=== PATIENT | female | born 1955 | race Caucasian/White ===

== ENCOUNTER 2018-05-02 01:34 | Observation (INO) | payer OTHER ==
[~2018-05-02] VITALS: Ht 170.2 cm; Wt 84.8 kg
[2018-05-02 01:58] LABS: ABSOLUTE BASOPHIL COUNT 0.2 /CUMM (0.0-0.2); ABSOLUTE EOSINOPHIL COUNT 0.2 /CUMM (0.0-0.7); ABSOLUTE GRANULOCYTE CT 7.9 /CUMM (1.4-6.5); ABSOLUTE LYMPH COUNT 4.5 /CUMM (1.2-3.4); ABSOLUTE MONOCYTE COUNT 0.8 /CUMM (0.10-0.60); BASOPHIL % 1.3 % (0.0-2.0); EOSINOPHIL % 1.7 % (0-5); GRANULOCYTE % 58.1 % (42.2-75.2); HEMATOCRIT 40.7 % (37-47); MEAN CORPUSCULAR HGB 28.1 PG (27.0-31.0); MEAN CORPUSCULAR HGB CONC 34.5 G/DL (33.0-37.0); MEAN CORPUSCULAR VOLUME 81.7 FL (81.0-99.0); MEAN PLATELET VOLUME 6.7 FL (7.4-10.4); PLATELET COUNT 514 /CUMM (130-400); RBC DISTRIBUTION WIDTH 12.6 % (11.5-14.5); RED BLOOD CELL CT 4.98 /CUMM (4.20-5.40); WHITE BLOOD CELL COUNT 13.6 /CUMM (4.8-10.8)
--- NOTE | 2018-05-02 02:12 | ED GI/GU/ABDOMINAL COMPLAINT ---
History of Present Illness General Chief Complaint: Abdominal Pain/Flank Pain Stated Complaint: PT C/C UPPER ABD PAIN DENIES CP Source: patient, family, old records Exam Limitations: no limitations Vital Signs & Intake/Output Vital Signs & Intake/Output Vital Signs Date Time Temp Pulse Resp B/P B/P Pulse O2 O2 Flow FiO2 Mean Ox Delivery Rate 05/02 035 97.6 85 18 153/73 99 Room Air 05/02 0146 99 Room Air 05/02 0145 97.7 103 18 165/80 100 Room Air Allergies Coded Allergies: No Known Allergies (05/02/18) Triage Note: TRIAGE: PATIENT TO ER FROM HOME REPORTING UPPER MIDDLE ABD PAIN SHOOTING DOWN MIDDLE OF ABDOMEN SINCE 4PM, 09/04. DENIES N/V. AFEBRILE. DENIES DIARRHEA. Triage Nurses Notes Reviewed? yes LMP (ages 10-50): post menopausal ? n Is pt currently ? No Onset: Evening Duration: hour(s):, constant, continues in ED, getting worse Timing: recent history Quality/Severity: aching, severe Location: right upper quadrant Radiation: periumbilical Activities at Onset: eating Prior Abdominal Problems: none Past Sexual History: Unobtainable at this time Modifying Factors: Worsens With: palpation. Associated Symptoms: abdominal pain, loss of appetite HPI: Several hours prior to admission shortly after eating a roast speech sandwich patient developed right upper quadrant discomfort that was constant and progressive radiating to her periumbilical area. She is currently on Keflex status post chin lift. She denies fever chills nausea vomiting diarrhea chest pain cough shortness breath headache dysuria rash bleeding. Past History Travel History Traveled to [place] past 21 day No Medical History Any Pertinent Medical History? none Neurological: NONE EENT: NONE Cardiovascular: NONE Respiratory: NONE Gastrointestinal: NONE Hepatic: NONE Renal: NONE Musculoskeletal: NONE Psychiatric: NONE Endocrine: NONE Blood Disorders: NONE Cancer(s): NONE PROCESS COORDINATOR/Reproductive: NONE Surgical History Surgical History: non-contributory Psychosocial History What is your primary language Romansh Tobacco Use: Never used Family History Hx Contributory? No Review of Systems Review of Systems Constitutional: Reports: no symptoms. EENTM: Reports: no symptoms. Respiratory: Reports: no symptoms. Cardiovascular: Reports: no symptoms. GI: Reports: see HPI, abdominal pain. Genitourinary: Reports: no symptoms. Musculoskeletal: Reports: no symptoms. Skin: Reports: no symptoms. Neurological/Psychological: Reports: no symptoms. Hematologic/Endocrine: Reports: no symptoms. Immunologic/Allergic: Reports: no symptoms. All Other Systems: Reviewed and Negative Physical Exam Physical Exam General Appearance: well developed/nourished, alert, awake, anxious, moderate distress, obese Head: atraumatic, normal appearance Eyes: Bilateral: normal appearance, PERRL, EOMI, normal inspection. Ears, Nose, Throat, Mouth: hearing grossly normal, moist mucous membrane Neck: normal inspection, supple, full range of motion, normal alignment Respiratory: normal breath sounds, chest non-tender, no respiratory distress, quiet respiration, lungs clear Cardiovascular: regular rate/rhythm, normal peripheral pulses, norml femoral pulses equa Peripheral Pulses: 4+ carotid (R), 4+ carotid (L) Gastrointestinal: normal bowel sounds, soft, guarding, tenderness Back: normal inspection, normal range of motion, no vertebral tenderness Extremities: normal range of motion, no ligament instability Neurologic/Psych: no motor/sensory deficits, awake, alert, oriented x 3, normal gait, normal mood/affect, 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 No Sepsis Present: No Sepsis Focused Exam Completed? No Progress Differential Diagnosis: biliary colic, cholecystitis, gastritis Plan of Care: Orders Procedure Date/time Status Admit to inpatient 05/02 0536 Active URINALYSIS 05/02 0201 Complete EKG 05/02 0149 Active TROPONIN LEVEL 05/02 0148 Complete LIPASE 05/02 0148 Complete COMPREHENSIVE METABOLIC PANEL 05/02 0148 Complete CBC WITHOUT DIFFERENTIAL 05/02 0148 Complete AMYLASE 05/02 0148 Complete Laboratory Tests 05/02/18 0418: Urine Color STRAW, Urine Clarity CLEAR, Urine pH 6.0, Ur Specific [place] <= 1.005, Urine Protein NEG, Urine Ketones NEG, Urine Nitrite NEG, Urine Bilirubin NEG, Urine Urobilinogen 0.2, Ur Leukocyte Esterase NEG, Ur Microscopic SEDIMENT EXAMINED, Urine RBC 1-3, Ur Epithelial Cells RARE, Urine Bacteria RARE H, Urine Hemoglobin TRACE-INTACT, Urine Glucose NEG 05/02/18 0152: Anion Gap 13, Estimated GFR > 60, BUN/Creatinine Ratio 15.7, Glucose 112 H, Calcium 10.3 H, Total Bilirubin 0.4, AST 27, ALT 35, Alkaline Phosphatase 110, Troponin I < 0.01, Total Protein 7.3, Albumin 4.2, Globulin 3.1, Albumin/ Globulin Ratio 1.4, Amylase 56, Lipase 90, CBC w Diff MAN DIFF ORDERED, RBC 4.98 , MCV 81.7, MCH 28.1, MCHC 34.5, RDW 12.6, MPV 6.7 L, Gran % 58.1, Lymphocytes % 33.3, Monocytes % 5.6, Eosinophils % 1.7, Basophils % 1.3, Absolute Granulocytes 7.9 H, Segmented Neutrophils 54, Absolute Lymphocytes 4.5 H, Lymphocytes 42, Monocytes 3, Absolute Monocytes 0.8 H, Eosinophils 1, Absolute Eosinophils 0.2, Absolute Basophils 0.2, Platelet Estimate INCREASED, Polychromasia 1+, Ovalocytes FEW, Fld Total RBCs Counted 100 Diagnostic Imaging: Viewed by Me: CT Scan. Discussed w/RAD: CT Scan. Radiology Impression: 1. Multiple gallstones within a distended gallbladder. No definite CT findings of associated inflammation, though ultrasound would be a more sensitive examination for detecting mild changes of acute cholecystitis. 2. Left lower pole renal calculus without hydronephrosis. 3. Left ovarian cyst measuring 2.3 cm. Initial ED EKG: normal axis, normal intervals, normal p-waves, normal QRS complex, normal sinus rhythm, no ST T wave changes Prior EKG: unchanged Rhythm Strip: normal sinus rhythm Departure Departure Time of Disposition: 536 Disposition: STILL A PATIENT Condition: Stable Clinical Impression Primary Impression: Cholecystitis with cholelithiasis Secondary Impressions: Leukocytosis, unspecified Referrals: Kev ROOT,Bismark Reza (PCP/Family) Departure Forms: Customer Survey General Discharge Information Admission Note Spoke With: Segun ROOT,Michael Mckeon Documentation of Exam: Documentation of any treatments & extenuating circumstances including Concerns Regarding Discharge (functional status, medication knowledge or non-compliance, living conditions, etc.) that warrant an admission rather than observation: IV analgesia IV antibiotics nothing by mouth IV fluids surgical management medication adjustment continuing care discharge planning
--- NOTE | 2018-05-02 03:20 | CT SCAN REPORT ---
EXAMINATION: CT ABDOMEN AND PELVIS WITH CONTRAST CLINICAL INFORMATION: Right upper quadrant tenderness, Chiang's sign COMPARISON: None TECHNIQUE: Multidetector volumetric imaging was performed of the abdomen and pelvis following IV administration of 95 mL of Optiray 320 intravenous contrast. Sagittal and coronal reformatted images were obtained on the technologist's workstation. DLP: 466.24 mGy-cm FINDINGS: LUNG BASES: There is mild dependent atelectasis at the lung bases. LIVER, GALLBLADDER, AND BILIARY TREE: The liver is normal in size, shape, and attenuation. No focal hepatic lesion or biliary ductal dilatation is present. Multiple gallstones are visualized within a distended gallbladder. No appreciable gallbladder wall thickening or pericholecystic inflammation. PANCREAS: Unremarkable. SPLEEN: Unremarkable. ADRENAL GLANDS: Unremarkable. KIDNEYS AND URETERS: The kidneys are normal in size, shape, and attenuation. There is a subcentimeter hypoattenuating lesion in the upper left kidney, too small to characterize. There is a 0.3 cm calculus in the left lower pole. No hydronephrosis, hydroureter, or obstructing calculi seen. No perinephric stranding. BLADDER: Unremarkable. GASTROINTESTINAL TRACT: There is minimal colonic diverticulosis of the descending colon. No evidence of bowel obstruction. Assessment for wall thickening in some segments of the colon is limited due to luminal collapse, though no significant pericolonic stranding is seen to strongly suggest a colitis. The appendix is suspected to be collapsed. No free fluid or free air is seen. ABDOMINAL WALL: No significant hernia is appreciated. LYMPH NODES: Normal. VASCULAR: There is mild scattered atherosclerotic calcification.. PELVIC VISCERA: There is a 2.3 cm left ovarian cyst. OSSEOUS STRUCTURES: Degenerative changes are noted in the spine. IMPRESSION: 1. Multiple gallstones within a distended gallbladder. No definite CT findings of associated inflammation, though ultrasound would be a more sensitive examination for detecting mild changes of acute cholecystitis. 2. Left lower pole renal calculus without hydronephrosis. 3. Left ovarian cyst measuring 2.3 cm.
--- NOTE | 2018-05-02 03:49 | History & Physical Pre-Op ---
General Information and HPI History of Present Illness: 62yoF presents to ED with acute onset RUQ sharp pain that began around 3pm yesterday, about an hour after lunch. Ate nothing unusual for lunch, has never had this pain in past, no prior dx of gallstones or biliary pathology. Pain worsened through evening, though better now after pain meds in ED. Last BL yestday am, "normal" per pt. No changes in urinary habits, no fevers/chills, no n/v, no cp/sob. Last meal yesterday lunch. No hx abdominal surgery, though is 3wk sp cosmetic partial facelift and has been on keflex for the entire postop period. Also sp lumbar fusion 20yrs ago, otherwise no PMHx. Allergies/Medications Allergies: Coded Allergies: No Known Allergies (05/02/18) Home Med list Cephalexin 500 MG CAPSULE 1 CAP PO BID POST-OP (Reported) Past History Medical History Cardiovascular: NONE Respiratory: NONE Gastrointestinal: NONE Musculoskeletal: sp lumbar fusion 20yr ago Other Medical Hx: s/p cosmetic partial face lift 3 weeks ago Surgical History Pertinent Surgical History: partial face lift, lumbar fusion Past Family/Social History Psychosocial History Where Do You Live? Home Who Do You Live With? spouse Services at Home None Smoking Status: Never Smoked ETOH Use: occasional use Illicit Drug Use: denies illicit drug use Exam & Diagnostic Data Last 24 Hrs of Vital Signs/I&O Vital Signs Date Time Temp Pulse Resp B/P B/P Pulse O2 O2 Flow FiO2 Mean Ox Delivery Rate 05/02 0351 97.6 85 18 153/73 99 Room Air 05/02 0146 99 Room Air 05/02 0145 97.7 103 18 165/80 100 Room Air Intake & Output 05/02 0800 05/02 0000 05/01 1600 Intake Total Output Total Balance Patient 180 lb Weight Weight Reported by Patient Measurement Method Physical Exam: gen- nad card-s1s2 rrr pulm- ctab abd- ttp ruq, soft, nd, no r/g, +bs ext- calves soft nt bl Last 24 Hrs of Labs/Socrates: Laboratory Tests 05/02/18 0418: Urine Color Pending, Urine Clarity Pending, Urine pH Pending, Ur Specific [place] Pending, Urine Protein Pending, Urine Ketones Pending, Urine Nitrite Pending, Urine Bilirubin Pending, Urine Urobilinogen Pending, Ur Leukocyte Esterase Pending, Ur Microscopic SEDIMENT EXAMINED, Urine RBC Pending, Urine Hemoglobin Pending, Urine Glucose Pending 05/02/18 0152: Anion Gap 13, Estimated GFR > 60, BUN/Creatinine Ratio 15.7, Glucose 112 H, Calcium 10.3 H, Total Bilirubin 0.4, AST 27, ALT 35, Alkaline Phosphatase 110, Troponin I < 0.01, Total Protein 7.3, Albumin 4.2, Globulin 3.1, Albumin/ Globulin Ratio 1.4, Amylase 56, Lipase 90, CBC w Diff MAN DIFF ORDERED, RBC 4.98 , MCV 81.7, MCH 28.1, MCHC 34.5, RDW 12.6, MPV 6.7 L, Gran % 58.1, Lymphocytes % 33.3, Monocytes % 5.6, Eosinophils % 1.7, Basophils % 1.3, Absolute Granulocytes 7.9 H, Segmented Neutrophils 54, Absolute Lymphocytes 4.5 H, Lymphocytes 42, Monocytes 3, Absolute Monocytes 0.8 H, Eosinophils 1, Absolute Eosinophils 0.2, Absolute Basophils 0.2, Platelet Estimate INCREASED, Polychromasia 1+, Ovalocytes FEW, Fld Total RBCs Counted 100 Diagnostic Data Other Results SERVICE DATE: 05/02/18 EXAM TYPE: CAT - CT ABD & PELVIS W IV CONTRAST EXAMINATION: CT ABDOMEN AND PELVIS WITH CONTRAST CLINICAL INFORMATION: Right upper quadrant tenderness, Chiang's sign COMPARISON: None TECHNIQUE: Multidetector volumetric imaging was performed of the abdomen and pelvis following IV administration of 95 mL of Optiray 320 intravenous contrast. Sagittal and coronal reformatted images were obtained on the technologist's workstation. DLP: 466.24 mGy-cm FINDINGS: LUNG BASES: There is mild dependent atelectasis at the lung bases. LIVER, GALLBLADDER, AND BILIARY TREE: The liver is normal in size, shape, and attenuation. No focal hepatic lesion or biliary ductal dilatation is present. Multiple gallstones are visualized within a distended gallbladder. No appreciable gallbladder wall thickening or pericholecystic inflammation. PANCREAS: Unremarkable. SPLEEN: Unremarkable. ADRENAL GLANDS: Unremarkable. KIDNEYS AND URETERS: The kidneys are normal in size, shape, and attenuation. There is a subcentimeter hypoattenuating lesion in the upper left kidney, too small to characterize. There is a 0.3 cm calculus in the left lower pole. No hydronephrosis, hydroureter, or obstructing calculi seen. No perinephric stranding. BLADDER: Unremarkable. GASTROINTESTINAL TRACT: There is minimal colonic diverticulosis of the descending colon. No evidence of bowel obstruction. Assessment for wall thickening in some segments of the colon is limited due to luminal collapse, though no significant pericolonic stranding is seen to strongly suggest a colitis. The appendix is suspected to be collapsed. No free fluid or free air is seen. ABDOMINAL WALL: No significant hernia is appreciated. LYMPH NODES: Normal. VASCULAR: There is mild scattered atherosclerotic calcification.. PELVIC VISCERA: There is a 2.3 cm left ovarian cyst. OSSEOUS STRUCTURES: Degenerative changes are noted in the spine. IMPRESSION: 1. Multiple gallstones within a distended gallbladder. No definite CT findings of associated inflammation, though ultrasound would be a more sensitive examination for detecting mild changes of acute cholecystitis. 2. Left lower pole renal calculus without hydronephrosis. 3. Left ovarian cyst measuring 2.3 cm. Assessment/Plan Assessment/Plan: A- 62F with cholelithiasis/cholecystitis, with leukocytosis of 13K with normal LFTs, stable P- NPO IVF IV meds prn pain meds IV abx will require cholecystectomy later today DVT ppx OOB, ambulate I&Os Full code will dw Dr. Cast As Ranked By This Provider Problem List: 1. Cholecystitis 2. Cholelithiasis
--- NOTE | 2018-05-02 03:49 | Admission Core Measures ---
Acute Coronary Syndrome (CM) ACS Core Measures Acute Coronary Syndrome Diagnosis No Congestive Heart Failure (NEW) CHF Core Measures Congestive Heart Failure Diagnosis No Cerebrovascular Accident CVA Core Measures CVA/TIA Diagnosis No Venous Thromboembolism VTE Core Andria (View Protocol) VTE Risk Factors Acute Medical Illness No Mechanical VTE Prophylaxis d/t N/A MechProphylax Ordered No VTE Pharm Prophylaxis d/t NA PharmProphylax ordered Problem List As ranked by this Provider includes Assessment & Plan 1. Cholecystitis
[2018-05-02] MEDS ORDERED: CEPHALEXIN500 M3 PO (05:51)
[2018-05-02 08:05] VITALS: BP 140/80
--- NOTE | 2018-05-02 13:07 | Patient Discharge Instructions ---
Discharge Instructions General Discharge Information You were seen/treated for: Acute cholecystitis You had these procedures: Laparoscopic cholecystectomy on 05/02/18 Watch for these problems: Increased pain, fever > 101.3, chills, nausea, vomiting, redness, swelling or drainage from your incisions No bath, but you may shower: Yes (in 48 hours) Other wound care: Keep incisions clean and dry Ok to remove dressings in 48 hours Diet Continue normal diet: No Recommended Diet: Low Fat Activity Full Activity/No Limits: No Activity Self Limited: Yes Pounds, do NOT lift more than: 10 Other activity limits: No heavy lifting or strenous activity for 4 weeks Acute Coronary Syndrome Inclusion Criteria At DC or during hospital stay patient has or had the following: ACS DIAGNOSIS No Discharge Core Measures Meds if any: Prescribed or Continued at Discharge Meds if any: NOT Prescribed or Continued at Discharge Congestive Heart Failure Inclusion Criteria At DC or during hospital stay patient has or had the following: CHF DIAGNOSIS No Discharge Core Measures Meds if any: Prescribed or Continued at Discharge Meds if any: NOT Prescribed or Continued at Discharge Cerebrovascular accident Inclusion Criteria At DC or during hospital stay patient has or had the following: CVA/TIA Diagnosis No Discharge Core Measures Meds if any: Prescribed or Continued at Discharge Meds if any: NOT Prescribed or Continued at Discharge Venous thromboembolism Inclusion Criteria VTE Diagnosis No VTE Type NONE VTE Confirmed by (Test) NONE Discharge Core Measures - Per Current guidelines, there needs to be overlap - treatment for the first 5 days of Warfarin therapy. - If discharged on Warfarin prior to 5 days of - overlap therapy, the patient will need to be - assessed for post discharge needs including - *Post discharge parental anticoagulation - *Warfarin and/or parental anticoagulation education - *Follow up date to check INR post discharge At least 5 days overlap therapy as Inpatient No Meds if any: Prescribed or Continued at Discharge Note: Overlap Therapy is Warfarin and Anticoagulant Meds if any: NOT Prescribed or Continued at Discharge
--- NOTE | 2018-05-02 14:03 | Surg Short-stay <48hrs Dis Sum ---
Visit Information Visit Dates Admission Date: 05/02/18 Discharge Date: 05/02/18 Surgical Short Stay DC Summary Admission Diagnosis: Acute Cholecystitis, Cholelithiasis Final Diagnosis: Same Procedure(s): Laparoscopic Cholecystectomy Summary/Significant Findings: This is a 62 yo female who presented to the ED with acute onset of RUQ sharp pain that began around 3pm yesterday, about an hour after lunch. Ate nothing unusual for lunch, has never had this pain in past, no prior dx of gallstones or biliary pathology. Pain worsened through evening, though better after pain meds in ED. Last BM yestday am, "normal" per pt. No changes in urinary habits, no fevers/chills, no n/v, no cp/sob. Last meal yesterday lunch. No hx abdominal surgery, though is 3wk s/p cosmetic partial facelift and has been on keflex for the entire postop period. Also s/p lumbar fusion 20yrs ago, otherwise no PMHx. Workup was obtained and revealed Acute Cholecystitis & Cholelithiasis. She was admitted to the surgical service and made npo, placed on IVF and ABx in the form of unasyn. Arrangements were made to proceed to the operating room. On 05/02/18 she underwent Laparoscopic Cholecystectomy. Patient tolerated the procedure well. Postoperative course was uncomplicated. Diet was advanced in a stepwise fashion as tolerated. By time of discharge patient was ambulating, voiding, tolerating a low fat diet, and pain was well controlled with oral analgesia. Plan is for the patient to follow up Dr. Cast in one to two weeks. Full details of her hospital course, operative report and diagnostic studies can be found in her electronic chart. Condition at Discharge: Stable Discharge Disposition: home or self care Discharge instructions provided to patient/family: Yes Post discharge follow-up plan: Please see electronic discharge instructions. Copies to: Segun ROOT,Michael Mckeon
--- NOTE | 2018-05-02 14:52 | PN- General Surgery ---
Subjective Subjective: Patient doing well post procedure. Reports slight discomfort in the RUQ but feels markedly improved. Ready to try some pain medication. Denies any other issues or complaints. Objective Vital Signs and I&Os Vital Signs Date Time Temp Pulse Resp B/P B/P Pulse O2 O2 Flow FiO2 Mean Ox Delivery Rate 05/02 805 98.2 72 20 140/80 98 Room Air 05/02 0556 98.4 76 18 148/90 98 05/02 0351 97.6 85 18 153/73 99 Room Air 05/02 0146 99 Room Air 05/02 0145 97.7 103 18 165/80 100 Room Air Intake & Output 05/02 1600 05/02 0800 05/02 0000 05/01 1600 05/01 0800 05/01 0000 Intake Total Output Total Balance Patient 187 lb 187 lb Weight Weight Bed scale Bed scale Measurement Method Physical Exam: General: A, A, NAD Abdomen: Obese, soft, nd, appropriately ttp, incisions c/d/i with bandaids and steristrips in place, no strikethrough on the dressings, no perincisional edema, erythema, or ecchymosis Extremities: No clubbing, cyanosis or edema Current Medications: Current Medications Sig/Jose Enrique Start time Last Medication Dose Route Stop Time Status Admin Acetaminophen 1,000 MG Q8P PRN 05/02 1400 AC PO Ampicillin Sodium/ 1,500 MG Q6H 05/02 1000 DC 05/02 Sulbactam Sodium IV 1033 Sodium Chloride 100 ML Ampicillin Sodium/ 3,000 MG ONCE ONE 05/02 0345 DC 05/02 Sulbactam Sodium IV 05/02 0414 0348 Sodium Chloride 100 ML Ampicillin Sodium/ 0 .STK-MED ONE 05/02 0345 DC Sulbactam Sodium .ROUTE Dextrose/Sodium 1,000 ML CONTINOUS INFUSION 05/02 0615 AC 05/02 Chloride IV 1004 Diphenhydramine HCl 50 MG Q6P PRN 05/02 1400 AC IV Heparin Sodium 5,000 UNIT Q8 05/02 1400 AC (Porcine) SC Ketorolac 15 MG Q6 05/02 1800 AC Tromethamine IV 05/03 1801 Ketorolac 30 MG ONCE ONE 05/02 0930 DC 05/02 Tromethamine IV 05/02 0931 0931 Ketorolac 0 .STK-MED ONE 05/02 0210 DC Tromethamine .ROUTE Ketorolac 30 MG ONCE ONE 05/02 200 DC 05/02 Tromethamine IV 05/02 0201 0205 Morphine Sulfate 2 MG Q2P PRN 05/02 07 AC 05/02 IV 08 Morphine Sulfate 0 .STK-MED ONE 05/02 627 DC .ROUTE Morphine Sulfate 2 MG Q2P PRN 05/02 615 DC 05/02 IV 0623 Morphine Sulfate 4 MG ONCE ONE 05/02 034 DC 05/02 IV 05/02 034 034 Morphine Sulfate 0 .STK-MED ONE 05/02 345 DC .ROUTE Ondansetron HCl 4 MG Q6P PRN 05/02 0615 AC IV Oxycodone/ 1 TAB Q4P PRN 05/02 1400 AC Acetaminophen PO Sodium Chloride 1,000 ML BOLUS ONE 05/02 200 DC 05/02 IV 05/02 0259 0205 Results Last 48 Hours of Labs: Laboratory Tests 05/02 05/02 0418 0152 Chemistry Sodium (137 - 145 mmol/L) 142 Potassium (3.5 - 5.1 mmol/L) 4.2 Chloride (98 - 107 mmol/L) 103 Carbon Dioxide (22 - 30 mmol/L) 27 Anion Gap (5 - 16) 13 BUN (7 - 17 mg/dL) 11 Creatinine (0.5 - 1.0 mg/dL) 0.7 Estimated GFR (>60 ml/min) > 60 BUN/Creatinine Ratio (7 - 25 %) 15.7 Glucose (65 - 99 mg/dL) 112 H Calcium (8.4 - 10.2 mg/dL) 10.3 H Total Bilirubin (0.2 - 1.3 mg/dL) 0.4 AST (14 - 36 U/L) 27 ALT (9 - 52 U/L) 35 Alkaline Phosphatase (<127 U/L) 110 Troponin I (< 0.11 ng/ml) < 0.01 Total Protein (6.3 - 8.2 g/dL) 7.3 Albumin (3.5 - 5.0 g/dL) 4.2 Globulin (1.9 - 4.2 gm/dL) 3.1 Albumin/Globulin Ratio (1.1 - 2.2 %) 1.4 Amylase (30 - 110 U/L) 56 Lipase (23 - 300 U/L) 90 Hematology CBC w Diff MAN DIFF ORDERED WBC (4.8 - 10.8 /CUMM) 13.6 H RBC (4.20 - 5.40 /CUMM) 4.98 Hgb (12.0 - 16.0 G/DL) 14.0 Hct (37 - 47 %) 40.7 MCV (81.0 - 99.0 FL) 81.7 MCH (27.0 - 31.0 PG) 28.1 MCHC (33.0 - 37.0 G/DL) 34.5 RDW (11.5 - 14.5 %) 12.6 Plt Count (130 - 400 /CUMM) 514 H MPV (7.4 - 10.4 FL) 6.7 L Gran % (42.2 - 75.2 %) 58.1 Lymphocytes % (20.5 - 51.1 %) 33.3 Monocytes % (1.7 - 9.3 %) 5.6 Eosinophils % (0 - 5 %) 1.7 Basophils % (0.0 - 2.0 %) 1.3 Absolute Granulocytes (1.4 - 6.5 /CUMM) 7.9 H Segmented Neutrophils (42.2 - 75.2 %) 54 Absolute Lymphocytes (1.2 - 3.4 /CUMM) 4.5 H Lymphocytes (20.5 - 51.1 %) 42 Monocytes (1.7 - 9.3 %) 3 Absolute Monocytes (0.10 - 0.60 /CUMM) 0.8 H Eosinophils (0 - 5.0 %) 1 Absolute Eosinophils (0.0 - 0.7 /CUMM) 0.2 Absolute Basophils (0.0 - 0.2 /CUMM) 0.2 Platelet Estimate (ADEQUATE) INCREASED Polychromasia 1+ Ovalocytes FEW Other Body Source Fld Total RBCs Counted (%) 100 Urines Urine Color (YEL,AMB,STR) STRAW Urine Clarity (CLEAR) CLEAR Urine pH (5.0 - 8.0) 6.0 Ur Specific [place] (1.001 - 1.035) <= 1.005 Urine Protein (NEG,<30 MG/DL) NEG Urine Ketones (NEG) NEG Urine Nitrite (NEG) NEG Urine Bilirubin (NEG) NEG Urine Urobilinogen (0.1 - 1.0 EU/dl) 0.2 Ur Leukocyte Esterase (NEG) NEG Ur Microscopic SEDIMENT EXAMINED Urine RBC (0 - 5 /HPF) 1-3 Ur Epithelial Cells (NONE,FEW) RARE Urine Bacteria (NEG/NONE) RARE H Urine Hemoglobin (NEG) TRACE-INTACT Urine Glucose (N MG/DL) NEG Assessment/Plan Assessment/Plan This is a 62 yo female who presented with acute cholecystitis and cholelithiasis and is POD #0 from Laparoscopic Cholecystectomy Ambulate/IS GI/DVT Px PRN analgesia/antiemetics Low fat DTV Possible d/c tn vs. tomorrow Will d/w Dr. Cast Problem List: 1. Cholecystitis with cholelithiasis 2. S/P laparoscopic cholecystectomy Core Measures Venous Thromboembolism VTE Risk Factors Acute Medical Illness No Mechanical VTE Prophylaxis d/t N/A MechProphylax Ordered No VTE Pharm Prophylaxis d/t NA PharmProphylax ordered
--- NOTE | 2018-05-02 15:18 | Operative Report ---
Operative/Inv Procedure Report Surgery Date: 05/02/18 Name of Procedure: laparoscopic cholecystectomy Pre-Operative Diagnosis: cholecystitis Post-Operative Diagnosis: same Estimated Blood Loss: less than 50ml Surgeon/Tool Filer: Segun ROOT,Michael Mckeon/Jolene BROOKS Anesthesia: general endotracheal tube Drains: none Specimens: gb Operative/Procedure Note Note: After informed consent patient is brought to the operating room and laid supine. General anesthesia was obtained and her abdomen was prepped and draped. The skin above the umbilicus infiltrated with local anesthesia and a curvilinear incision made sharply. We came down through the subcutaneous tissues bluntly and grasped the fascia with Carlos's. A fasciotomy was created sharply and stay sutures placed. The peritoneum was entered sharply and a blunt Cramer port was placed. Pneumoperitoneum was achieved. 3, 5 mm ports were placed in the epigastrium and right upper quadrant after local anesthesia was instilled and under direct vision the camera. She's placed in reverse Trendelenburg and rotated towards the left. The gallbladder is identified. It was severely distended and inflamed. It was puncture aspirated to allow it was puncture aspirated to allow it to be grasped. It was grasped at the dome and retracted towards the head. Infundibulum was then grasped. Adhesions to the undersurface were taken down with blunt and cautery dissection. We dissected both sides the triangle [place] peritoneal tissue with cautery. The artery was medial and its normal anatomic position. It was cauterized medially to allow it to be mobilized away from the duct. [place] was cleared of areolar tissue with cautery. The arteries and duct were doubly ligated with clips. Gallbladder is removed from the fossa electrocautery. It was placed in Endo Catch bag and cinched up. Right upper quadrant was and suction irrigated normal saline. Hemostasis achieved with cautery. The ports were then removed and the gallbladder delivered and passed off the field. The fascia was closed with 0 Vicryl suture. Skin incisions closed with 4-0 Vicryl. Steri-Strips and sterile dressing applied. Sponge and needle counts are correct. CC: Kev ROOT,Bismark Reza
[2018-05-02 16:00] VITALS: BP 130/80
[2018-05-02] MEDS ORDERED: PERCOCET 5-3251 EACH PO (17:34)
== END 2018-05-02 18:26 ==
LOC: ERH 01:34 → ERHI 06:01 → ENRESERV 06:34 → ENTRNSPT 06:54 → EDTRNSPTSTS 07:42 → EDTRNSPT 07:42 → 2NA 07:44 → CMPTRNSPT 08:17 → ENTRNSPT 15:19 → EDTRNSPTSTS 15:32 → EDTRNSPT 15:32 → CMPTRNSPT 15:53 → 2NA 18:26
PROVIDERS: Emergency Medicine
DX: K80.10 Calculus of gallbladder with chronic cholecystitis without obstruction (principal)
CPT/HCPCS: 74177; 81001; 88304; 93005; 93010; 96361; 96374; 96375; 96376; G0378; J0131; J1200; J1644; J1885; J2405; J3490